=== PATIENT | male | born 1955 | race Caucasian/White ===

== ENCOUNTER 2022-10-09 06:52 | Day surgery (SDC) | payer BC, MEDICARE ==
[2022-10-09] MEDS ORDERED: Sodium Chloride 0.9% 1,000 ML IV SCH (07:00)
[2022-10-09] MEDS ORDERED: Midazolam 1 MG/ML 2 ML SDV ONE (07:10)
[2022-10-09] MEDS ORDERED: Propofol 200 MG/20 ML SDV ONE (07:10)
[2022-10-09] MEDS ORDERED: fentaNYL 100 MCG/2 ML SDV ONE (07:10)
[2022-10-09] MEDS ORDERED: cefTRIAXone 1 GM Vial IV ONE (11:45)
[2022-10-09] MEDS ORDERED: cefTRIAXone 2 GM in Sodium Chloride 0.9% 50 ML IV ONE (12:00)
== END 2022-10-09 13:27 | disposition home or self-care (01) ==
LOC: JP.SDS 06:52
PROVIDERS: ATTEND Internal Medicine
DX: Z12.11 Encounter for screening for malignant neoplasm of colon (principal); D12.5 Benign neoplasm of sigmoid colon; Z80.0 Family history of malignant neoplasm of digestive organs; Z79.899 Other long term (current) drug therapy
CPT/HCPCS: 45380; 71046; 88305; J0696; J2250; J2704; J3010; J3490; J7030